=== PATIENT | male | born 1960 | race Caucasian/White ===

== ENCOUNTER → 2016-09-13 | Outpatient (REF) ==
--- NOTE | 2016-09-13 12:31 | REP ---
Clinical: Pain and disability. Technique: AP, lateral, coned-down views of the lumbosacral spine. Findings: Alignment and lordosis maintained without acute fracture / compression injury or subluxation. Moderate multilevel degenerative changes include anterior osteophytes, endplate sclerosis/irregularity, disc space narrowing and hypertrophic facet changes. Findings are most pronounced at the L5-S1 and L4-5 levels. Impression: Moderate multilevel degenerative changes most pronounced at the L5-S1 and L4-L5 levels. Signed by Dixon Espinoza MD 09/13/2016 12:23 P
== END ==
LOC: M SMT 11:53
PROVIDERS: ATTEND Internal Medicine
DX: M51.36 Other intervertebral disc degeneration, lumbar region (principal); M51.37 Other intervertebral disc degeneration, lumbosacral region

== ENCOUNTER → 2024-01-22 | Outpatient (REF) | payer MEDICARE, BC | LOC: M SFHCDERM 17:26 | PROVIDERS: ATTEND Physician Assistant | DX: C44.229 Squamous cell carcinoma of skin of left ear and external auricular canal (principal) ==